=== PATIENT | male | born 1985 | race Caucasian/White ===

== ENCOUNTER 2017-04-21 18:22 | Outpatient (CLI) | payer BC | END 2017-04-21 18:23 | disposition critical access hospital (66) | DX: M25.571 Pain in right ankle and joints of right foot (principal); W17.2XXA Fall into hole, initial encounter; Y92.89 Other specified places as the place of occurrence of the external cause | CPT/HCPCS: A0425; A0429 ==

== ENCOUNTER 2017-04-21 18:33 | Emergency (ER) | payer BC ==
[2017-04-21] MEDS ORDERED: IBUPROFEN 800 MG TABLET PO STA (19:21)
[2017-04-21] MEDS ORDERED: IBUPROFEN 800 MG TABLET PO ONE (19:27)
== END 2017-04-21 20:07 | disposition home or self-care (01) ==
DX: S82.431A Displaced oblique fracture of shaft of right fibula, initial encounter for closed fracture (principal); S82.51XA Displaced fracture of medial malleolus of right tibia, initial encounter for closed fracture; W17.2XXA Fall into hole, initial encounter; I10 Essential (primary) hypertension
CPT/HCPCS: 29515; 73610; 99283; A9270